=== PATIENT | female | born 1970 | race Hispanic/Latino ===

== ENCOUNTER 2017-01-04 11:23 | Day surgery (SDC) ==
[2017-01-04] MEDS ORDERED: PEPCID ONE (11:36)
[2017-01-04] MEDS ORDERED: LR 1,000 ML ONE (11:36)
[2017-01-04] MEDS ORDERED: REGLAN ONE (11:36)
[2017-01-04] MEDS ORDERED: KEFZOL 2 GM/D5W 50 ML ONE (11:37)
[2017-01-04] MEDS ORDERED: VALIUM ONE (11:42)
[2017-01-04] MEDS ORDERED: XYLOCAINE 1% ONE (13:05)
[2017-01-04] MEDS ORDERED: MARCAINE 0.25% PF/EPI 1:200,000 ONE (13:05)
[2017-01-04] MEDS ORDERED: VERSED ONE (14:08)
[2017-01-04] MEDS ORDERED: DIPRIVAN 1% ONE (14:08)
[2017-01-04] MEDS ORDERED: FENTANYL ONE (14:08)
[2017-01-04] MEDS ORDERED: NORCO-10 ONE (14:30)
[2017-01-04] MEDS ORDERED: ZOFRAN ONE (14:51)
[2017-01-04] MEDS ORDERED: DECADRON ONE (14:51)
[2017-01-04] MEDS ORDERED: XYLOCAINE-MPF 2% ONE (14:51)
[2017-01-04 15:14] VITALS: BP 123/76
--- NOTE | 2017-01-04 18:44 | OPERATIVE NOTE ---
PROCEDURE DATE: 01/04/2017 PREOPERATIVE DIAGNOSIS: Right lower inner breast mass, measuring 3 cm, read as a BI-RADS 5 on mammogram. POSTOPERATIVE DIAGNOSIS: Right lower inner breast mass, measuring 3 cm, read as a BI-RADS 5 on mammogram. PROCEDURE PERFORMED: Open excisional breast biopsy of right inner lower breast mass, measuring 3 cm. SURGEON: Dequan Felder MD HAND BOX COVERER: None. ANESTHESIA: General endotracheal. INTRAOPERATIVE FINDINGS: Mass measured 3 cm. ESTIMATED BLOOD LOSS: 10 mL. SPECIMENS REMOVED: 1. With margins being ink, measuring the deep; single stitch being superior; double stitch lateral. 2. New superior deep margin with ink being the new margin. HISTORY: The patient is a 46-year-old female, presenting with a palpable breast mass which was read as BI-RADS 5. Given this, it was felt the patient would benefit from open excisional biopsy. The risks, benefits, and alternatives were discussed. Also discussed with the patient that if this came back as cancer this would not be the definitive surgery. All questions were answered. DESCRIPTION OF PROCEDURE: After informed consent was obtained, the patient was brought to the operating theatre, transferred to the operating table, and placed in supine position. General orotracheal anesthesia was then performed without complication. A formal time-out was then performed, confirming patient, date, and procedure. All were in agreement. At that time, attention was given to the right breast. The mass itself had been marked and the right breast had been marked also in preoperative holding. This area was prepped and draped. After a formal time- out, we made a curvilinear incision in the inferior aspect of the areolar complex down to the mass. We were able to circumferentially dissect out the mass and marked it as noted above. We maintained hemostasis with electrocautery. We did find some more palpable lesions deep and superior which we removed as the new margin. We irrigated out the area copiously. We maintained hemostasis with electrocautery and passed off the specimens as described and oriented as above. I did discuss the orientation and the markings with the pathologist. We then closed the area in layers using 3-0 Vicryl and 4-0 Monocryl. The patient tolerated the procedure well and was transferred to the recovery room in stable condition.
== END 2017-01-04 15:20 | disposition home or self-care (01) ==
LOC: OR 11:23
PROVIDERS: ATTEND Surgery
DX: D24.1 Benign neoplasm of right breast (principal); N63 Unspecified lump in breast; R92.2 Inconclusive mammogram
CPT/HCPCS: 88305; 88307; J0690; J1100; J2250; J2405; J3010; J7120